=== PATIENT | male | born 1970 | race African-American/Black ===

== ENCOUNTER 2019-03-30 03:20 | Emergency (ER) | payer SELFPAY | END 2019-03-30 03:35 | LOC: ERS 03:20 | DX: F16.10 Hallucinogen abuse, uncomplicated (principal); F10.20 Alcohol dependence, uncomplicated; D64.9 Anemia, unspecified; F41.9 Anxiety disorder, unspecified; F31.9 Bipolar disorder, unspecified; F17.210 Nicotine dependence, cigarettes, uncomplicated | CPT/HCPCS: 99283 ==

== ENCOUNTER 2019-05-30 13:43 | Emergency (ER) | payer OTHER ==
[2019-05-30 14:34] LABS: #Lymphocytes 0.6 thou/uL (1.20-3.40); #Monocytes 0.7 thou/uL (0.11-0.59); #Neutrophils 6.3 thou/uL (1.40-6.50); %Basophils 0.2 % (0.0-1.0); %Eosinophils 0.4 % (0.0-10.0); %Lymphocytes 7.2 % (21.0-51.0); %Monocytes 9.4 % (0.0-10.0); %Neutrophils 82.8 % (42.0-75.0); Hemoglobin 13.4 g/dL (14.0-18.0); Mean Corpuscular HGB CONC 33.7 g/dL (32.0-36.0); Mean Corpuscular Hemoglobin 29.7 pg (27.0-31.0); Mean Corpuscular Volume 88.1 fL (78.0-98.0); Mean Platelet Volume 10.3 fL (7.4-10.4); Platelet Count 168 thou/uL (130-400); RBC Distribution Width 12.7 % (11.5-14.5); Red Blood Cell (RBC) Count 4.53 mill/uL (4.70-6.10); White Blood Cell (WBC) Count 7.7 thou/uL (4.8-10.8)
[2019-05-30 15:03] LABS: Acetaminophen Less than 6.0 mcg/mL (10.0-30.0); Alcohol Less than 10 mg/dL (Less than 10); Salicylate Less than 8.0 mg/dL (15.0-30.0)
[2019-05-30 15:11] LABS: Bilirubin Negative (Negative); Blood, Urine Negative (Negative); Clarity Clear (Clear); Glucose, Urine (Dipstick) Normal (Negative); Leukocyte Negative Leu/uL (Negative); Nitrite Negative (Negative); Protein, Urine (Dipstick) 20 mg/dL (Neg-Trace); Urobilinogen Normal mg/dL (Less than 2)
[2019-05-30 15:21] LABS: Amphetamine Not Detected (NotDetected); Barbiturates Screen Not Detected (NotDetected); Benzodiazepine Screen Not Detected (NotDetected); Cocaine Metabolite Screen Detected (NotDetected); Medtox Reader # READER 1; Methadone Not Detected (NotDetected); Methamphetamine Not Detected (NotDetected); Opiate Screen Not Detected (NotDetected); Phencyclidine (PCP) Detected (NotDetected); THC/Cannabinoid Screen Detected (NotDetected); Tricyclic Screen Not Detected (NotDetected)
[2019-05-30 15:22] LABS: Medtox Control Line Valid? VALID (VALID); Oxycodone Screen Not Detected (NotDetected)
== END 2019-05-30 15:00 | disposition left against medical advice (07) ==
LOC: ERS 13:43
DX: R41.82 Altered mental status, unspecified (principal); D64.9 Anemia, unspecified; F32.9 Major depressive disorder, single episode, unspecified; F41.9 Anxiety disorder, unspecified; F17.210 Nicotine dependence, cigarettes, uncomplicated
CPT/HCPCS: 36415; 80306; 80307; 81003; 82550; 85025; 99285

== ENCOUNTER 2019-11-08 22:33 | Inpatient (IN) | payer OTHER ==
[2019-11-08 22:52] LABS: #Lymphocytes 1.6 thou/uL (1.20-3.40); #Monocytes 0.6 thou/uL (0.11-0.59); #Neutrophils 8.2 thou/uL (1.40-6.50); %Basophils 0.3 % (0.0-1.0); %Eosinophils 0.5 % (0.0-10.0); %Lymphocytes 15.1 % (21.0-51.0); %Monocytes 5.7 % (0.0-10.0); %Neutrophils 78.4 % (42.0-75.0); Mean Corpuscular HGB CONC 32.8 g/dL (32.0-36.0); Mean Corpuscular Hemoglobin 30.2 pg (27.0-31.0); Mean Corpuscular Volume 92.3 fL (78.0-98.0); Mean Platelet Volume 10.3 fL (7.4-10.4); Platelet Count 288 thou/uL (130-400); White Blood Cell (WBC) Count 10.4 thou/uL (4.8-10.8)
[2019-11-08] MEDS ORDERED: Cefepime 2 GM VIAL ONE (22:56)
--- NOTE | 2019-11-08 23:08 | RAD ---
RADIOGRAPH CHEST 1 VIEW: DATE: 11/08/2019 HISTORY: 48-year-old male with tachycardia, hypotension, and hypothermia FINDINGS: The visualized lung cedeno are clear. The cardiomediastinal silhouette and hilar shadows are normal. The lateral costophrenic angles are sharp. The osseous structures appear normal. There is no pneumothorax. There is at least mild hyperinflation of lungs. IMPRESSION: No acute cardiac probably findings
[2019-11-08 23:14] LABS: Acetaminophen Less than 6.0 mcg/mL (10.0-30.0); Alcohol Less than 10 mg/dL (Less than 10); Salicylate Less than 8.0 mg/dL (15.0-30.0)
[2019-11-08] MEDS ORDERED: Vancomycin HCl 1.25 GM in Sodium Chloride 0.9% 250 ML 250 ML IVPB SCH (23:15)
[2019-11-08 23:28] LABS: ALT (SGPT) 15 U/L (8-55); AST (SGOT) 23 U/L (5-34); Albumin 5.6 g/dL (3.5-5.0); Alkaline Phosphatase 86 U/L (40-110); Anion Gap 35 mmol/L (10-20); BUN (Urea Nitrogen) 31 mg/dL (8.9-20.6); Bilirubin, Total 0.8 mg/dL (0.2-1.2); Calc. Creatinine Clearance 0 mL/min (70-130); Calcium 11.5 mg/dL (7.8-10.44); Carbon Dioxide 11 mmol/L (22-29); Chloride 94 mmol/L (98-107); Estimated GFR-MDRD 19; Glucose 162 mg/dL (70-105); Potassium 4.2 mmol/L (3.5-5.1); Protein, Total 10.6 g/dL (6.0-8.3); Sodium 136 mmol/L (136-145)
[2019-11-09 01:33] LABS: Actual Bicarbonate (HCO3a) 19.1 mEq/L (22-28); Analyzer IN Cardio ER; Base Excess (BEa) -5.9 mEq/L (-2.0 to +3.0); Calcium, Ionized (arterial) 1.14 mmol/L (1.12-1.30); Carboxyhemoglobin (COHb) 0.2 gm% (0.0-3.0); Hemoglobin (Hb) 13.3 g/dL (14.0-18.0); O2 Tension (PaO2), arterial 86.8 mmHg (80.0-100.0); Potassium - ABG Lab 4.87 mmol/L (3.70-5.30); pH, Arterial 7.34 (7.35-7.45)
[2019-11-09 01:35] LABS: Puncture Site RRA
[2019-11-09 01:44] LABS: Lactic Acid 1.4 mmol/L (0.5-2.2)
[2019-11-09 01:57] LABS: Bacteria/HPF 1+ HPF (None Seen); Bilirubin Negative (Negative); Blood, Urine 1+ (Negative); Clarity Turbid (Clear); Glucose, Urine (Dipstick) Normal (Negative); Ketone, Urine Negative (Negative); Leukocyte Negative Leu/uL (Negative); Nitrite Negative (Negative); Protein, Urine (Dipstick) 200 mg/dL (Neg-Trace); Specific Gravity, Urine 1.019 (1.002-1.036); Squamous Epithelial 0-3 HPF (0-3); Urobilinogen Normal mg/dL (Less than 2); pH, Urine 5.5 (5.0-9.0)
[2019-11-09] MEDS ORDERED: Acetaminophen 325 MG TAB PO PRN ×2 (02:43→03:52)
[2019-11-09] MEDS ORDERED: Ondansetron PF 4 MG/2 ML Vial IVP PRN ×2 (02:43→03:52)
[2019-11-09] MEDS ORDERED: Ondansetron ODT 4 MG TAB SL PRN (02:43)
[2019-11-09 02:55] VITALS: BMI 16.9
[2019-11-09] MEDS: Sodium Chloride 0.9% 1,000 ML IV SCH ×3 (03:01→21:52)
[2019-11-09] MEDS ORDERED: cloNIDine 0.1 MG TAB PO PRN (03:52)
[2019-11-09] MEDS ORDERED: Labetalol HCl 100 MG/20 ML VIAL SLOW IVP PRN (03:52)
[2019-11-09] MEDS ORDERED: Guaifenesin DM 100-10/5 ML UDCUP PO PRN (03:52)
[2019-11-09] MEDS ORDERED: Promethazine HCl 12.5 MG in Sodium Chloride 0.9% 50 ML IVPB PRN (03:52)
[2019-11-09] MEDS ORDERED: hydrALAZINE 20 MG/ML VIAL SLOW IVP PRN (03:52)
--- NOTE | 2019-11-09 03:59 | PDOC.HHP ---
Hospitalist HPI - History of Present Illness Syncope History of Present Illness: Patient is a 48 year old male with PMH anemia, depression, biopolar disorder, anxiety, substance abuse (PCP, marijuana) who presents after being found down in bathtub by family after unknown amount of time. He is poor historian, but feels like he remembers laying down in tub. EMs called and patient was found to be hypotensive, tachycardic and hypothermic, with temp 94F and SBP in 80s, sugar 109. He was responsive and AOx4 on scene despite vital sign abnormalities. In ambulance given IVF and warming blankets. He recently tested negative for covid. He is not aware of any medical history, used to see a PCP in town but does not remember name. He denies chest pain, shortness of breath, palpitations. He reports feeling sick/ill last few days. He is unsure if he has ever had any cardiac testing. In ED, labs significant for lactic acid of 11.4 which rapidly improved to 1.4 after 2 hours of care. CO2 is 11, abg w/ metabolic acidosis. Cr 4.03. TnI normal, TSH high. Ua suggestive of UTI. CXR without acute findings. Patient to be admitted for further workup and care. Hospitalist ROS - Review of Systems Constitutional: reports: other (syncope). denies: fever, chills, sweats, weakness, malaise Eyes: denies: pain, vision change, conjunctivae inflammation, eyelid inflammation, redness, other ENT: denies: ear pain, ear discharge, nose pain, nose discharge, nose congestion , mouth pain, mouth swelling, throat pain, throat swelling, other Respiratory: denies: cough, dry, shortness of breath, hemoptysis, SOB with excertion, pleuritic pain, sputum, wheezing, other Cardiovascular: denies: chest pain, palpitations, orthopnea, paroxysmal noc. dyspnea, edema, light headedness, other Gastrointestinal: denies: nausea, vomiting, abdominal pain, diarrhea, constipation, melena, hematochezia, other Genitourinary: denies: dysuria, frequency, incontinence, hematuria, retention, other Musculoskeletal: denies: neck pain, shoulder pain, arm pain, back pain, hand pain, leg pain, foot pain, other Skin: denies: rash, lesions, sri, bruising, other Neurological: denies: weakness, numbness, incoordination, change in speech, confusion, seizures, other All other systems reviewed; all pertinent +/- noted in HPI/Subj - Medication Medications: Active Medications Generic Name Dose Route Start Last Admin Trade Name Joshuaq PRN Reason Stop Dose Admin Sodium Chloride 1,000 mls @ 110 mls/hr 11/09/19 02:43 11/09/19 03:01 Normal Saline 0.9% IV 11/09/19 13:25 1,000 mls .[id number] KADE Administration UNK DEPRESSION MED gabapentin CAPSULE : Strength - 100 mg : ORAL Patient Dose: 1 tab(s) Oral 3 times a day. Hospitalist History - Past Medical History Other Medical History: anemia, depression, biopolar disorder, anxiety, substance abuse (PCP, marijuana ) - Past Surgical History Past Surgical History: reports: no pertinent history - Family History Family History: reports: no pertinent history - Social History Smoking Status: Current every day smoker Alcohol: reports: Occassional Drugs: reports: marijuana, Other (pcp) - Exam General Appearance: NAD, awake alert Eye: PERRL, anicteric sclera ENT: normocephalic atraumatic, no oropharyngeal lesions, moist mucosa Neck: supple, symmetric, no JVD, no thyromegaly, no lymphadenopathy, no carotid bruit Heart: RRR, no murmur, no gallops, no rubs, normal peripheral pulses Respiratory: CTAB, no wheezes, no rales, no ronchi, normal chest expansion, no tachypnea, normal percussion Gastrointestinal: soft, non-tender, non-distended, normal bowel sounds, no palpable masses, no hepatomegaly, no splenomegaly, no bruit Extremities: no cyanosis, no clubbing, no edema Skin: normal turgor, no lesions, no rashes Neurological: cranial nerve grossly intact, normal sensation to touch, no weakness, no focal deficits, no new deficit Musculoskeletal: normal tone, normal strength, no muscle wasting Psychiatric: normal affect, normal behavior, A&O x 3 Hospitalist Results - Labs Result Diagrams: 11/08/19 22:40 11/08/19 22:40 Lab results: WBC 10.4 thou/uL (4.8-10.8) 11/08/19 22:40 Hgb 16.0 g/dL (14.0-18.0) 11/08/19 22:40 Hct 48.9 % (42.0-52.0) 11/08/19 22:40 MCV 92.3 fL (78.0-98.0) 11/08/19 22:40 Plt Count 288 thou/uL (130-400) 11/08/19 22:40 Neutrophils % 78.4 % (42.0-75.0) H 11/08/19 22:40 ABG pH 7.34 (7.35-7.45) L 11/09/19 01:25 ABG pCO2 36.0 mmHg (35.0-45.0) 11/09/19 01:25 ABG pO2 86.8 mmHg (80.0-100.0) 11/09/19 01:25 Sodium 136 mmol/L (136-145) 11/08/19 22:40 Potassium 4.2 mmol/L (3.5-5.1) 11/08/19 22:40 Chloride 94 mmol/L (98-107) L 11/08/19 22:40 Carbon Dioxide 11 mmol/L (22-29) L 11/08/19 22:40 BUN 31 mg/dL (8.9-20.6) H 11/08/19 22:40 Creatinine 4.03 mg/dL (0.7-1.3) H 11/08/19 22:40 Glucose 162 mg/dL (70-105) H 11/08/19 22:40 Lactic Acid 1.4 mmol/L (0.5-2.2) 11/09/19 01:22 Calcium 11.5 mg/dL (7.8-10.44) H 11/08/19 22:40 Total Bilirubin 0.8 mg/dL (0.2-1.2) 11/08/19 22:40 AST 23 U/L (5-34) 11/08/19 22:40 ALT 15 U/L (8-55) 11/08/19 22:40 Alkaline Phosphatase 86 U/L (40-110) 11/08/19 22:40 Creatine Kinase 147 U/L (30-200) 11/08/19 22:40 Troponin I 0.026 ng/mL (< 0.028) 11/08/19 22:40 B-Natriuretic Peptide 23.7 pg/mL (0-100) 11/08/19 22:40 Serum Total Protein 10.6 g/dL (6.0-8.3) H 11/08/19 22:40 Albumin 5.6 g/dL (3.5-5.0) H 11/08/19 22:40 Lipase 23 U/L (8-78) 11/08/19 22:40 Urine Ketones Negative mg/dL (Negative) 11/09/19 01:40 Urine Blood 1+ (Negative) A 11/09/19 01:40 Urine Nitrite Negative (Negative) 11/09/19 01:40 Ur Leukocyte Esterase Negative Kit/uL (Negative) 11/09/19 01:40 Urine RBC 4-6 HPF (0-3) A 11/09/19 01:40 Urine WBC 11-20 HPF (0-3) A 11/09/19 01:40 Ur Squamous Epith Cells 0-3 HPF (0-3) 11/09/19 01:40 Urine Bacteria 1+ HPF (None Seen) A 11/09/19 01:40 Additional comment: VITAL SIGNS Fri Nov 09, 2019 01:45 CHIQUI Royal Deborah BP: 98/61 MAP: 73 Pulse: 100 Resp: 13 (Non-Labored) Pain: 8 O2 sat: 98 on (Room Air) Time: 11/09/2019 01:45. labs, imaging reports, ekg, ed notes reviewed - EKG Interpretation EKG: sinus tachycardia 117 BPM, significant artifact limiting interpretation, QTc 527 , no apparant ST elevations but eval limited Hospitalist H&P A/P - Plan Plan: Patient is a 48 year old male with PMH anemia, depression, biopolar disorder, anxiety, substance abuse (PCP, marijuana) who presents after being found down in bathtub by family after unknown amount of time. # syncope # UTI # severe sepsis secondary to UTI Patient found in bathtub hypotensive, tachycardic and hypothermic, in ED lactic acid 11.4 -> 1.4, CO2 11, abg w/ metabolic acidosis. Cr 4.03. TnI normal, TSH high. Ua suggestive of UTI. CXR without acute findings. Patient to be admitted for further workup and care. - admit to IMCU - ceftriaxone, follow cultures - echocardiogram ordered - consult pulmonary - UDS # acute renal failure # metabolic acidosis - suspect mixed cause due to lactic acid and renal failure - trend BMP, recheck now that patient has been warmed - bicarbona drip - I/Os # prolonged QT - mag sulfate now - artifact limits EKG read, repeat after giving magnesium # abnormal TSH - free T4 ordered DVT/GI ppx full code
[2019-11-09] MEDS ORDERED: Sodium Chloride 0.9% 1,000 ML IV SCH (04:00)
[2019-11-09] MEDS ORDERED: Electrolyte Replacement Protoc 1 EACH EACH FS SCH (04:00)
[2019-11-09] MEDS ORDERED: Sodium Bicarbonate 150 MEQ in Dextrose 5% in Water 1,000 ML IV SCH (04:15)
[2019-11-09 04:35] LABS: INR-International Normal Ratio 1.1; Prothrombin Time 14.1 sec (12.0-14.7)
[2019-11-09] MEDS: cefTRIAXone\\ROCEPHIN 1 GM in Sodium Chloride 0.9% 100 ML IVPB SCH (04:45)
[2019-11-09 05:13] LABS: Thyroid Stimulating Hormone 1.373 uIU/mL (0.35-4.94)
[2019-11-09 05:30] LABS: Amphetamine Not Detected (NotDetected); Barbiturates Screen Not Detected (NotDetected); Benzodiazepine Screen Not Detected (NotDetected); Cocaine Metabolite Screen Detected (NotDetected); Medtox Control Line Valid? VALID (VALID); Medtox Reader # READER 1; Methadone Not Detected (NotDetected); Methamphetamine Not Detected (NotDetected); Opiate Screen Not Detected (NotDetected); Oxycodone Screen Not Detected (NotDetected); Phencyclidine (PCP) Not Detected (NotDetected); THC/Cannabinoid Screen Detected (NotDetected); Tricyclic Screen Not Detected (NotDetected)
[2019-11-09] MEDS ORDERED: Magnesium Sulfate 2 GM in Sodium Chloride 0.9% 100 ML IVPB SCH (05:30)
[2019-11-09 05:33] LABS: #Lymphocytes 0.7 thou/uL (1.20-3.40); #Monocytes 1.1 thou/uL (0.11-0.59); #Neutrophils 11.7 thou/uL (1.40-6.50); %Eosinophils 0.1 % (0.0-10.0); %Lymphocytes 5.4 % (21.0-51.0); %Monocytes 8.2 % (0.0-10.0); %Neutrophils 86.3 % (42.0-75.0); Hemoglobin 12.3 g/dL (14.0-18.0); Mean Corpuscular HGB CONC 33.8 g/dL (32.0-36.0); Mean Corpuscular Hemoglobin 30.2 pg (27.0-31.0); Mean Corpuscular Volume 89.4 fL (78.0-98.0); Mean Platelet Volume 9.7 fL (7.4-10.4); Platelet Count 190 thou/uL (130-400); RBC Distribution Width 11.7 % (11.5-14.5); Red Blood Cell (RBC) Count 4.08 mill/uL (4.70-6.10); White Blood Cell (WBC) Count 13.5 thou/uL (4.8-10.8)
[2019-11-09 05:42] LABS: Chloride 103 mmol/L (98-107); Potassium 4.8 mmol/L (3.5-5.1); Sodium 136 mmol/L (136-145)
[2019-11-09 05:43] LABS: Glucose 117 mg/dL (70-105)
[2019-11-09 05:44] LABS: Anion Gap 18 mmol/L (10-20); Carbon Dioxide 20 mmol/L (22-29)
[2019-11-09] MEDS ORDERED: Magnesium 2 GM/50 ML 2 GM in Premix Bag 1 BAG IVPB SCH (05:45)
[2019-11-09 05:46] LABS: Calc. Creatinine Clearance 22 mL/min (70-130); Estimated GFR-MDRD 22; Phosphorus 3.7 mg/dL (2.3-4.7)
[2019-11-09 05:47] LABS: BUN (Urea Nitrogen) 37 mg/dL (8.9-20.6)
[2019-11-09 05:48] LABS: Calcium 8.5 mg/dL (7.8-10.44); Magnesium 1.8 mg/dL (1.6-2.6)
[2019-11-09 07:13] LABS: Free T4 (Free Thyroxine) 1.2 ng/dL (0.70-1.48)
--- NOTE | 2019-11-09 09:27 | ULT ---
ULTRASOUND RETROPERITONEUM COMPLETE: (RENAL) DATE: 11/09/2019 HISTORY: 48-year-old male with acute kidney injury FINDINGS: Heterogeneously diffusely mildly increased parenchymal echogenicity of bilateral kidneys consistent w ith medical renal disease. No hydronephrosis. Right kidney: 9.5 x 4 x 5.5 cm. Left kidney: 9 x 5.5 x 5.5 cm. Urinary bladder volume 125 mL at time of scan. Heterogeneous material of intermediate to low echogenicity apparently within the lumen of the bladder extensively: Artifact versus sludge versus blood clots. IMPRESSION: 1) no hydronephrosis. 2) evidence for medical renal disease. 3) abnormal appearance of urinary bladder. Consider cystoscopy or CT.
[2019-11-09] MEDS: Famotidine 20 MG TAB PO SCH ×2 (09:46→20:38)
[2019-11-09] MEDS: Heparin 5,000 UNITS/ML VIAL SC SCH ×3 (09:46→20:38)
[2019-11-09] MEDS ORDERED: Cefepime 2 GM in Sodium Chloride 0.9% 100 ML IVPB SCH (11:00)
[2019-11-09] MEDS ORDERED: Vancomycin HCl 1.25 GM in Sodium Chloride 0.9% 250 ML 250 ML IVPB SCH (12:00)
[2019-11-09 12:45] LABS: SARS-CoV-2 MS2 Positive; SARS-CoV-2 N Gene Negative; SARS-CoV-2 S Gene Negative; SARS-CoV-2 by NAA Not Detected (NotDetected); SARS-CoV-2 orf1ab Negative
--- NOTE | 2019-11-09 18:25 | CON ---
DATE OF CONSULTATION: 11/09/2019 REASON FOR CONSULTATION: Sepsis. HISTORY OF PRESENT ILLNESS: The patient is a 48-year-old male, who presented to the ER yesterday with severe weakness and had been found down at his home in the bathtub. On initial presentation, he was hypothermic with hypotension. The foot became better fairly quickly after fluid administration. He was also initially lactic acidotic, but improved again after fluid administration. He is awake and alert at this time and has no active complaints. PAST MEDICAL HISTORY: Anemia, depression, bipolar disorder, anxiety, drug abuse , marijuana, cocaine. PAST SURGICAL HISTORY: None. FAMILY MEDICAL HISTORY: None. SOCIAL HISTORY: Smokes every day. He uses illicit drugs. Does not consume alcohol. MEDICATIONS: Prior to admission, not known at this time. REVIEW OF SYSTEMS: He says he has chronic pain. He does not know what he takes for that other than Neurontin. REVIEW OF SYSTEMS: Remainder review of systems are negative. ALLERGIES: NONE. PHYSICAL EXAMINATION: VITAL SIGNS: Temperature 99.7, pulse 83, blood pressure 103/66, and O2 saturation 100%. GENERAL: He is awake, alert, and in no acute distress. He is a thin person, 6 feet and 3 inches, weight 135 pounds. HEENT: Unremarkable. NECK: No adenopathy or JVD. LUNGS: Clear. CARDIAC: S1 and S2. Regular without murmur. ABDOMEN: Soft and nontender. EXTREMITIES: No clubbing, cyanosis, or edema. LABORATORY DATA: White blood cell count 13.5, hematocrit 36.5, and platelet count 191. PH of 7.34, pCO2 of 36, and pO2 of 86. Sodium 136, potassium 4.8, chloride 103, CO2 of 20, BUN 37, creatinine 3.5, and glucose 117. CPK was not elevated. Troponin 0.17. Cortisol 19.4. TSH 1.37. Urinalysis showed some white blood cells. Drug screen positive for cocaine and cannabinoids. COVID-19 test was negative. Chest x-ray showed no acute findings. Renal ultrasound showed some low echogenicity within the lumen of the bladder extensively, which was felt to be artifact versus sludge versus clots. ASSESSMENT: 1. Lactic acidosis due to either hypovolemia or sepsis. 2. Question bladder lesion. 3. Oral drug abuse. PLAN: The patient is currently receiving IV fluids to help correct his metabolic acidosis. He is receiving empiric antibiotics. I have nothing to add to the current care and we will follow along with you until he leaves [facility]. Job ID: [id number]
[2019-11-09] MEDS ORDERED: Enoxaparin Sodium 30 MG/0.3 ML SYRINGE SC SCH (21:00)
[2019-11-10 03:38] LABS: #Eosinphils 0.2 thou/uL (0.0-0.7); #Lymphocytes 1.2 thou/uL (1.20-3.40); #Monocytes 0.5 thou/uL (0.11-0.59); #Neutrophils 2.6 thou/uL (1.40-6.50); %Basophils 0.3 % (0.0-1.0); %Eosinophils 4.7 % (0.0-10.0); %Lymphocytes 26.2 % (21.0-51.0); %Monocytes 11.8 % (0.0-10.0); Hemoglobin 10.7 g/dL (14.0-18.0); Mean Corpuscular Hemoglobin 30.5 pg (27.0-31.0); Mean Corpuscular Volume 89.7 fL (78.0-98.0); Mean Platelet Volume 9.8 fL (7.4-10.4); Platelet Count 140 thou/uL (130-400); RBC Distribution Width 11.6 % (11.5-14.5); Red Blood Cell (RBC) Count 3.49 mill/uL (4.70-6.10); White Blood Cell (WBC) Count 4.6 thou/uL (4.8-10.8)
[2019-11-10 04:26] LABS: Anion Gap 11 mmol/L (10-20); BUN (Urea Nitrogen) 36 mg/dL (8.9-20.6); Calc. Creatinine Clearance 48 mL/min (70-130); Calcium 8.7 mg/dL (7.8-10.44); Carbon Dioxide 28 mmol/L (22-29); Chloride 102 mmol/L (98-107); Estimated GFR-MDRD 55; Glucose 91 mg/dL (70-105); Magnesium 2.4 mg/dL (1.6-2.6); Potassium 4.1 mmol/L (3.5-5.1); Sodium 137 mmol/L (136-145)
[2019-11-10] MEDS: cefTRIAXone\\ROCEPHIN 1 GM in Sodium Chloride 0.9% 100 ML IVPB SCH (05:01)
[2019-11-10] MEDS: Famotidine 20 MG TAB PO SCH ×2 (08:33→20:59)
[2019-11-10] MEDS: Heparin 5,000 UNITS/ML VIAL SC SCH ×3 (08:33→20:54)
[2019-11-10] MEDS: Sodium Chloride 0.9% 1,000 ML IV SCH (08:34)
--- NOTE | 2019-11-10 11:45 | PRG ---
DATE OF SERVICE: 11/10/2019 SUBJECTIVE: He looks comfortable and is in no distress. He had no complaints. OBJECTIVE: VITAL SIGNS: Temperature 98.7, pulse 56, blood pressure 94/56, O2 saturation 100%. HEENT: Unremarkable. NECK: No JVD. LUNGS: Clear. CARDIAC: S1 and S2. Regular. ABDOMEN: Soft. EXTREMITIES: No edema. LABORATORY DATA: White blood cell count 4.6, hematocrit 31, and platelet count 140. Sodium 137, potassium 4.1, BUN 36, creatinine 1.6, glucose 91. Cultures show no growth to date. An echocardiogram demonstrated normal systolic function with no evidence of vegetations. ASSESSMENT: 1. Lactic acidosis, probably secondary to hypovolemia. 2. Questionable bladder lesion. 3. Drug abuse. PLAN: No overt pulmonary critical care concerns. I think the patient could be safely transferred to the medical floor. He has improved dramatically with volume resuscitation. I will sign off. Please recall if further assistance needed. Job ID: [id number]
[2019-11-10 12:36] LABS: CKMB 3.3 ng/mL (0-6.6)
[2019-11-10] MEDS ORDERED: Gabapentin 100 MG CAP PO PRN (19:08)
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
[2019-11-10] MEDS: Cefdinir 300 MG CAP PO SCH (20:59)
[2019-11-11] MEDS: Sodium Chloride 0.9% 1,000 ML IV SCH ×2 (00:14→08:08)
[2019-11-11 00:44] LABS: HIV (1/2) Antibody/Antigen Non-Reactive (NonReactive); HIV 1/2 INDEX 0.11 S/CO (<1.00)
[2019-11-11 07:07] VITALS: BP 114/76; TEMP 97.5
[2019-11-11 08:00] LABS: Iron 98 ug/dL (65-175); Iron Binding Capacity, Total 254 mcg/dL (261-462)
[2019-11-11] MEDS: Famotidine 20 MG TAB PO SCH ×2 (08:08→19:48)
[2019-11-11] MEDS: Cefdinir 300 MG CAP PO SCH ×2 (08:08→19:48)
[2019-11-11] MEDS: Heparin 5,000 UNITS/ML VIAL SC SCH ×3 (08:09→19:44)
[2019-11-11 08:24] LABS: Ferritin 99.48 ng/mL (22-322); Thyroid Stimulating Hormone 3.5576 uIU/mL (0.35-4.94)
[2019-11-11 10:37] LABS: Hemoglobin 10.2 g/dL (14.0-18.0); Mean Corpuscular HGB CONC 33.5 g/dL (32.0-36.0); Mean Corpuscular Hemoglobin 30.4 pg (27.0-31.0); Mean Corpuscular Volume 90.7 fL (78.0-98.0); Mean Platelet Volume 10.5 fL (7.4-10.4); Platelet Count 138 thou/uL (130-400); RBC Distribution Width 11.6 % (11.5-14.5); Red Blood Cell (RBC) Count 3.35 mill/uL (4.70-6.10); White Blood Cell (WBC) Count 3.7 thou/uL (4.8-10.8)
[2019-11-11 10:55] LABS: Anion Gap 14 mmol/L (10-20); BUN (Urea Nitrogen) 21 mg/dL (8.9-20.6); Calc. Creatinine Clearance 78 mL/min (70-130); Calcium 8.7 mg/dL (7.8-10.44); Carbon Dioxide 24 mmol/L (22-29); Chloride 107 mmol/L (98-107); Estimated GFR-MDRD Greater than 90; Glucose 96 mg/dL (70-105); Potassium 4.4 mmol/L (3.5-5.1); Sodium 141 mmol/L (136-145)
[2019-11-11] MEDS ORDERED: Gabapentin 100 MG CAP PO SCH ×2 (14:30→21:00)
--- NOTE | 2019-11-11 16:06 | EKG ---
Test Reason : Blood Pressure : / mmHG Vent. Rate : 082 BPM Atrial Rate : 082 BPM P-R Int : 138 ms QRS Dur : 080 ms QT Int : 384 ms P-R-T Axes : 075 080 077 degrees QTc Int : 448 ms Normal sinus rhythm Right atrial enlargement Borderline ECG When compared with ECG of 08-NOV-2019 22:41, (Unconfirmed) Premature atrial complexes are no longer Present ST no longer depressed in Inferior leads T wave inversion no longer evident in Inferior leads Nonspecific T wave abnormality no longer evident in Lateral leads Confirmed by Hieu BOYER ([id number]) on 11/11/2019 4:05:33 PM Referred By: DIGNA Confirmed By:Hieu BOYER
--- NOTE | 2019-11-11 16:28 | PDOC.HOSPP ---
- Subjective Encounter Date: 11/11/19 Encounter Time: 10:00 Subjective: THe patient is doing well. He has only mild cramps in his legs, gabapentin dose increased today Patient is getting EEG this am. MRI unable to be done this afternoon - Objective Vital Signs & Weight: Vital Signs (12 hours) Temp Pulse Resp BP Pulse Ox 11/11/19 07:33 99 11/11/19 07:03 97.5 F L 73 17 114/76 99 Weight Admit Weight 135 lb 7 oz Weight 135 lb 7 oz Most Recent Monitor Data Heart Rate from ECG 58 NIBP 97/63 NIBP BP-Mean 74 Respiration from ECG 7 SpO2 100 I&O: 11/10/19 11/11/19 11/12/19 06:59 06:59 06:59 Intake Total 2872 622 Output Total 2100 200 1400 Balance 772 422 -1400 Result Diagrams: 11/11/19 10:13 11/11/19 10:13 Hospitalist ROS - Medication Medications: Active Medications Generic Name Dose Route Start Last Admin Trade Name Joshuaq PRN Reason Stop Dose Admin Cefdinir 300 mg 11/10/19 21:00 11/11/19 08:08 Omnicef PO 300 mg BID KADE Administration Famotidine 20 mg 11/09/19 09:00 11/11/19 08:08 Pepcid PO 20 mg BID KADE Administration Gabapentin 200 mg 11/11/19 14:30 11/11/19 15:19 Neurontin PO 11/11/19 16:30 200 mg NOW KADE Administration Heparin Sodium (Porcine) 5,000 units 11/09/19 09:00 11/11/19 15:20 Heparin SC 5,000 units TID KADE Administration Sodium Chloride 1,000 mls @ 75 mls/hr 11/09/19 21:45 11/11/19 08:08 Normal Saline 0.9% IV 1,000 mls .[id number] KADE Administration - Exam General Appearance: NAD, awake alert Eye: PERRL, anicteric sclera ENT: normocephalic atraumatic, no oropharyngeal lesions Neck: no JVD Heart: RRR, no murmur, no gallops, no rubs Respiratory: CTAB, no wheezes, no rales, no ronchi Gastrointestinal: soft, non-tender, non-distended, normal bowel sounds Extremities: no cyanosis, no clubbing, no edema Skin: normal turgor, no lesions, no rashes Neurological: cranial nerve grossly intact, normal sensation to touch, no focal deficits, no new deficit Hosp A/P - Plan This is 48 year old male who presented with syncopal episode after being found down in the bathtub #Syncope - likely from severe dehydration - ECHO was normal - EEG was negative for seizure. He does have history of seizures and is on gabapentin - will checK CT scan of head given fall. Neurology was consulted, MRI brain has been ordered #Sepsis from UTI #Lactic acidosis - possibly sepsis vs dehydration - resolved. Blood and urine culture normal , however UA was very turbid. Will switch from IV ceftriaxone to oral cefdinir #LE - resolved, REnal US showed medical renal disease Leg cramps - gabapentin increased to 200 mg bid #Leukopenia #Severe malnutrition - patient's BMI noted to be 16.9. WBC still downtrending - HIV test negative Anemia - Hb 10,ferritin normal - B12/folate/TSH normal Dispo: possible d/c tomorrow pending MRI brain
--- NOTE | 2019-11-11 18:14 | CT ---
CT HEAD WITHOUT CONTRAST: Indications: Fall with injury, syncope. FINDINGS: Ventricles have normal size and position. No evidence of intracranial hemorrhage or mass. No evidence of infarct. Paranasal sinuses are clear. IMPRESSION: No acute findings. POS: AGW
--- NOTE | 2019-11-12 08:21 | EEG ---
DATE OF SERVICE: 11/11/2019 ATTENDING PHYSICIAN: Daphnie Schuler MD. This EEG was performed using 24-channel Screen [employer] video digital EEG machine with 24-disk electrodes. This was an extended 2 hours 6 minutes of inpatient video EEG recording. Digital analysis of the EEG was done for spike and seizure detection, which revealed no abnormalities. BACKGROUND: The posterior background rhythm is 8.5 Hz. The background rhythm attenuates with eye opening and enhances with eye closure. HYPERVENTILATION: Not performed. PHOTIC STIMULATION: Bioccipital symmetric driving responses observed. SLEEP: Drowsiness is observed. EEG DIAGNOSIS: Normal awake and drowsy EEG. Job ID: [id number]
--- NOTE | 2019-11-12 19:13 | DIS ---
DATE OF ADMISSION: 11/09/2019 DATE OF DISCHARGE: 11/11/2019 DISCHARGE DIAGNOSES: 1. Syncope likely secondary to severe dehydration and possible urinary tract infection. 2. Severe sepsis secondary to urinary tract infection. 3. Acute renal failure. 4. History of seizures. 5. Leg cramps. BRIEF HISTORY OF PRESENT ILLNESS: This is a 48-year-old male with a past medical history of depression, anxiety, substance abuse, who presented to the emergency room after he was found in the bathtub by his friend. The patient stated he had a poor appetite due to cramps in his legs. He went to soak his legs in the bathtub. Shortly after, he felt dizzy and lightheaded and passed out. When he came to the emergency room, he was hypotensive, tachycardic, hypothermic with a temperature of 94, and his blood pressure was in the 80s. He was given IV fluids and warming blankets and brought to the ER for further evaluation. His labs were significant for lactic acid of 11.4, his UA showed turbid urine. U-Tox was positive for cocaine and marijuana. COVID PCR was negative. Chest x-ray was normal. The patient was admitted to the hospital for further workup and started on a broad-spectrum antibiotics. HOSPITAL COURSE: 1. Severe sepsis secondary to UTI. 2. Lactic acidosis secondary to severe dehydration: The patient was hydrated with IV fluids. He was started on IV ceftriaxone empirically. Blood cultures and urine cultures were negative; however, urine culture was done after the patient received antibiotics. His lactic acid normalized and his white blood cell count actually went down to 3.7 at the time of discharge. I resumed cefdinir on discharge for seven days given that his UA seemed consistent with UTI even though cultures were negative. 3. Syncope/History of seizures: Echocardiogram was normal. EEG to rule out seizures was normal. CT head was normal. MRI of the brain was unable to be done. Neurology recommended that the patient can get an outpatient MRI of the brain. He was started on gabapentin for history of his leg cramps and this can also be used to treat the seizures as well. Per neurology, they recommended gabapentin 200 mg twice daily. He should consider following up with a neurologist in a month. 4.Cocaine intoxication/marijuana intoxication: The patient was advised to stop smoking cocaine and consider stopping marijuana since it causes cyclic vomiting syndrome. 5. Acute renal failure: The patient presented with a creatinine of 4.03, which improved to 0.99 at the time of discharge. Renal ultrasound showed evidence of medical renal disease. It did show abnormal appearance of the bladder with possible clots and to consider a cystoscopy or CT abdomen. 6. Severe malnutrition/leukopenia: The patient's white count was downtrending. This may be secondary to antibiotics. His BMI is 16.9. HIV testing was negative. 7. Anemia: The patient has hemoglobin of 10. Ferritin, B12, folate, and TSH were normal. Consider further outpatient workup. DISCHARGE PHYSICAL EXAMINATION: VITAL SIGNS: Temperature 97.5, heart rate 73, respiratory rate 17, O2 saturation 99% on room air, and blood pressure 114/76. GENERAL: The patient is alert, awake, and oriented x3. CVS: Regular rate and rhythm with no murmurs, rubs, or gallops. LUNGS: Clear to auscultation bilaterally. ABDOMEN: Positive bowel sounds, soft, nontender, nondistended. NEUROLOGIC: The patient has 5/5 strength in his upper and lower extremities. EXTREMITIES: No edema. The patient does appear malnourished. PERTINENT LABORATORY DATA: CBC 11/10: White count 3.7, hemoglobin 10.2, hematocrit 30.4, platelet count 138. BMP 11/10: Normal with a creatinine of 0.99. Iron panel: Iron 98, TIBC 254, iron sat 39, ferritin 99. LFTs 11/07: Normal. Troponin I: 0.026, 0.170, 0.031. TSH: 6.5. Free T4: 1.2. Cortisol: 19.4. UA 11/08: Shows turbid urine, 200 protein, 1+ blood, 11-20 white blood cells. U-Tox 11/08: Shows positive cocaine, positive cannabinoid. COVID PCR 11/08: Negative. HIV 11/09: Negative. Blood cultures 11/07: Negative. Urine culture 11/08: Negative. IMAGING: Chest x-ray 11/07: Shows no acute findings. Renal ultrasound on 11/08: No hydronephrosis. Evidence for medical renal disease. Abnormal appearance of urinary bladder. Consider cystoscopy or CT. No hydronephrosis. CT brain 11/10: Pending. Echo 11/08: EF 60% to 65%. Essentially unremarkable. DISCHARGE CONDITION: Stable. ACTIVITY: As tolerated. DIET: Heart healthy diet. DISCHARGE MEDICATIONS: 1. Gabapentin 200 mg p.o. b.i.d. 2. Cefdinir 300 mg p.o. b.i.d. DISCHARGE INSTRUCTIONS: The patient should follow up with his PCP in a week. He should get an MRI of his brain as an outpatient to evaluate for seizures. He should get a repeat CBC in a week because his white blood cell count was low. HIV test was negative. He was advised to stop smoking cocaine and marijuana. Consider repeat renal ultrasound or CT scan of the abdomen as an outpatient for abnormal appearance of the bladder, however, this is likely secondary to UTI. Job ID: [id number] [id number]
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
== END 2019-11-11 20:30 | disposition home or self-care (01) | DRG 871 ==
LOC: ERS 22:33 → IMCU/EMU 11-09 01:43 → T4-A 11-10 14:47
PROVIDERS: ADMIT Internal Medicine; ATTEND Internal Medicine
DX: A41.9 Sepsis, unspecified organism (principal); E43 Unspecified severe protein-calorie malnutrition; E87.2 Acidosis; N17.9 Acute kidney failure, unspecified; Z68.1 Body mass index [BMI] 19.9 or less, adult; N39.0 Urinary tract infection, site not specified; Z20.828 Contact with and (suspected) exposure to other viral communicable diseases; R65.20 Severe sepsis without septic shock; E86.0 Dehydration; G40.909 Epilepsy, unspecified, not intractable, without status epilepticus; F41.9 Anxiety disorder, unspecified; G47.62 Sleep related leg cramps; F14.129 Cocaine abuse with intoxication, unspecified; F12.129 Cannabis abuse with intoxication, unspecified; D64.9 Anemia, unspecified; I45.81 Long QT syndrome; D72.819 Decreased white blood cell count, unspecified; F31.9 Bipolar disorder, unspecified; Z79.899 Other long term (current) drug therapy
CPT/HCPCS: 36415; 36416; 51701; 70450; 71045; 76770; 80048; 80053; 80306; 80307; 81003; 81015; 82533; 82550; 82553; 82607; 82728; 82746; 82805; 83540; 83550; 83605; 83690; 83735; 83880; 84100; 84439; 84443; 84484; 85025; 85027; 85610; 87040; 87086; 87389; 87635; 93005; 93010; 93306; 95712; 95816; 95819; 95957; 96361; 96365; 96367; J0692; J0696; J1644; J3370; J3475; J3490; J7050; J7070; U0003

== ENCOUNTER 2021-02-22 07:52 | Emergency (ER) | payer OTHER ==
[2021-02-22] MEDS ORDERED: Boostrix 0.5 ML (Tdap) VIAL ONE (08:56)
== END 2021-02-22 11:57 | disposition home or self-care (01) ==
LOC: ERS 07:52
DX: S61.219A Laceration without foreign body of unspecified finger without damage to nail, initial encounter (principal); F17.210 Nicotine dependence, cigarettes, uncomplicated; Z79.899 Other long term (current) drug therapy
CPT/HCPCS: 90471; 90715

== ENCOUNTER 2021-07-17 10:41 | Emergency (ER) | payer OTHER ==
[2021-07-17 10:51] LABS: #Eosinphils 0.4 thou/uL (0.0-0.7); #Lymphocytes 1.5 thou/uL (1.20-3.40); #Monocytes 0.4 thou/uL (0.11-0.59); #Neutrophils 1.3 thou/uL (1.40-6.50); %Basophils 1.2 % (0.0-1.0); %Eosinophils 11.6 % (0.0-10.0); %Lymphocytes 40.7 % (21.0-51.0); %Monocytes 11.4 % (0.0-10.0); %Neutrophils 35.2 % (42.0-75.0); Hemoglobin 12.5 g/dL (14.0-18.0); Mean Corpuscular Hemoglobin 28.5 pg (27.0-31.0); Mean Corpuscular Volume 89.3 fL (78.0-98.0); Mean Platelet Volume 10.9 fL (7.4-10.4); Platelet Count 155 thou/uL (130-400); RBC Distribution Width 12.1 % (11.5-14.5); Red Blood Cell (RBC) Count 4.37 mill/uL (4.70-6.10); White Blood Cell (WBC) Count 3.7 thou/uL (4.8-10.8)
[2021-07-17 11:06] LABS: ALT (SGPT) 10 U/L (8-55); AST (SGOT) 15 U/L (5-34); Albumin 3.9 g/dL (3.5-5.0); Alkaline Phosphatase 67 U/L (40-110); Anion Gap 10 mmol/L (10-20); BUN (Urea Nitrogen) 18 mg/dL (8.4-25.7); Bilirubin, Total 0.6 mg/dL (0.2-1.2); Calc. Creatinine Clearance 0 mL/min (70-130); Calcium 9.2 mg/dL (7.8-10.44); Carbon Dioxide 23 mmol/L (22-29); Chloride 111 mmol/L (98-107); Globulin 3.5 g/dL (2.4-3.5); Glucose 96 mg/dL (70-105); PTT 28.4 sec (22.9-36.1); Potassium 4.2 mmol/L (3.5-5.1); Protein, Total 7.4 g/dL (6.0-8.3); Prothrombin Time 13.3 sec (12.0-14.7); Sodium 140 mmol/L (136-145)
== END 2021-07-17 13:15 | disposition home or self-care (01) ==
LOC: ERS 10:41
DX: S11.93XA Puncture wound without foreign body of unspecified part of neck, initial encounter (principal); W34.00XA Accidental discharge from unspecified firearms or gun, initial encounter; Z23 Encounter for immunization; F17.210 Nicotine dependence, cigarettes, uncomplicated
CPT/HCPCS: 36415; 71045; 80053; 83605; 85025; 85610; 85730; 86850; 86900; 86901; 90471; 96365; G0390

== ENCOUNTER 2022-03-03 20:47 | Inpatient (IN) | payer OTHER ==
[~2022-03-03 20:47] MED LIST: Iopamidol-370 76% 500 ML 1 ML ONE
[2022-03-03] MEDS ORDERED: Ondansetron PF 4 MG/2 ML Vial IVP PRN (22:29)
[2022-03-03] MEDS ORDERED: Morphine 2 MG/ML VIAL SLOW IVP PRN (22:29)
[2022-03-03] MEDS ORDERED: TETANUS, DIPHTHERIA TOX,ADULT (TDVAX) 0.5 ML VIAL IM ONE (22:29)
[2022-03-03] MEDS ORDERED: Sodium Chloride 0.9% 1,000 ML IV SCH (22:30)
[2022-03-03 22:31] LABS: #Lymphocytes 0.8 thou/uL (1.20-3.40); #Monocytes 0.8 thou/uL (0.11-0.59); #Neutrophils 4.9 thou/uL (1.40-6.50); %Basophils 0.4 % (0.0-1.0); %Eosinophils 0.5 % (0.0-10.0); %Lymphocytes 12.8 % (21.0-51.0); %Monocytes 11.8 % (0.0-10.0); %Neutrophils 74.5 % (42.0-75.0); Hemoglobin 10.2 g/dL (14.0-18.0); Mean Corpuscular HGB CONC 32.8 g/dL (32.0-36.0); Mean Corpuscular Hemoglobin 30.3 pg (27.0-31.0); Mean Corpuscular Volume 92.5 fl (78.0-98.0); Mean Platelet Volume 10.7 fL (7.4-10.4); Platelet Count 138 10x3/uL (130-400); RBC Distribution Width 12.3 % (11.5-14.5); Red Blood Cell (RBC) Count 3.35 mill/uL (4.70-6.10); White Blood Cell (WBC) Count 6.5 10x3/uL (4.8-10.8)
[2022-03-03] MEDS ORDERED: Ondansetron ODT 4 MG TAB PO PRN (22:32)
[2022-03-03] MEDS ORDERED: traMADol HCl 50 MG TAB PO PRN (22:32)
[2022-03-03] MEDS ORDERED: Cyclobenzaprine 10 MG TAB PO PRN (22:32)
[2022-03-03] MEDS ORDERED: Ketamine 50 MG/ML (10ML VIAL) ONE (22:33)
[2022-03-03] MEDS ORDERED: PROPOFOL 20 ML ONE (22:33)
[2022-03-03] MEDS ORDERED: Ondansetron PF 4 MG/2 ML Vial ONE (22:40)
[2022-03-03 22:41] LABS: PTT 31.2 sec (22.9-36.1)
[2022-03-03] MEDS ORDERED: Ketorolac Tromethamine 30 MG/ML VIAL IVP SCH (22:45)
[2022-03-03 22:48] LABS: ALT (SGPT) 23 U/L (8-55); AST (SGOT) 40 U/L (5-34); Albumin 3.2 g/dL (3.5-5.0); Alkaline Phosphatase 48 U/L (40-110); Anion Gap 11 mmol/L (10-20); BUN (Urea Nitrogen) 13 mg/dL (8.4-25.7); Bilirubin, Total 0.7 mg/dL (0.2-1.2); Calc. Creatinine Clearance 0 mL/min (70-130); Calcium 8.8 mg/dL (7.8-10.44); Carbon Dioxide 27 mmol/L (22-29); Chloride 102 mmol/L (98-107); Estimated GFR 98; Globulin 2.9 g/dL (2.4-3.5); Glucose 92 mg/dL (70-105); Lipase 7 U/L (8-78); Potassium 4.3 mmol/L (3.5-5.1); Protein, Total 6.1 g/dL (6.0-8.3); Sodium 136 mmol/L (136-145)
[2022-03-03] MEDS ORDERED: Lidocaine 2% PF 5 ML VIAL ONE (23:04)
[2022-03-03] MEDS ORDERED: Fentanyl 100 MCG/2 ML VIAL ONE (23:11)
[2022-03-03] MEDS ORDERED: Ketorolac Tromethamine 30 MG/ML VIAL ONE (23:31)
[2022-03-04] MEDS: Ketorolac Tromethamine 30 MG/ML VIAL IVP SCH ×5 (01:50→23:07)
[2022-03-04] MEDS: traMADol HCl 50 MG TAB PO SCH ×5 (02:05→23:07)
[2022-03-04] MEDS: Acetaminophen 500 MG TAB PO SCH ×4 (02:06→19:30)
[2022-03-04 02:59] VITALS: BMI 18.1
[2022-03-04 06:37] LABS: #Eosinphils 0.1 thou/uL (0.0-0.7); #Monocytes 0.8 thou/uL (0.11-0.59); #Neutrophils 3.9 thou/uL (1.40-6.50); %Basophils 0.3 % (0.0-1.0); %Eosinophils 1.9 % (0.0-10.0); %Lymphocytes 16.9 % (21.0-51.0); %Monocytes 12.9 % (0.0-10.0); Hemoglobin 9.3 g/dL (14.0-18.0); Mean Corpuscular HGB CONC 34.7 g/dL (32.0-36.0); Mean Corpuscular Hemoglobin 31.9 pg (27.0-31.0); Mean Corpuscular Volume 91.9 fl (78.0-98.0); Mean Platelet Volume 10.4 fL (7.4-10.4); Platelet Count 124 10x3/uL (130-400); RBC Distribution Width 12.2 % (11.5-14.5); Red Blood Cell (RBC) Count 2.91 mill/uL (4.70-6.10); White Blood Cell (WBC) Count 5.8 10x3/uL (4.8-10.8)
[2022-03-04 06:39] LABS: Amphetamine Not Detected (NotDetected); Barbiturates Screen Detected (NotDetected); Benzodiazepine Screen Not Detected (NotDetected); Cocaine Metabolite Screen Detected (NotDetected); Methadone Not Detected (NotDetected); Methamphetamine Detected (NotDetected); Opiate Screen Not Detected (NotDetected); Oxycodone Screen Not Detected (NotDetected); Phencyclidine (PCP) Detected (NotDetected); THC/Cannabinoid Screen Detected (NotDetected); Tricyclic Screen Not Detected (NotDetected)
[2022-03-04] MEDS ORDERED: traMADol HCl 50 MG TAB PO PRN (06:55)
[2022-03-04 07:12] LABS: SARS-CoV-2 NAA Rapid Test Not Detected (NotDetected)
[2022-03-04] MEDS: Gabapentin 300 MG CAP PO SCH ×3 (08:46→19:30)
[2022-03-04] MEDS: Famotidine 20 MG TAB PO SCH ×2 (08:46→19:29)
[2022-03-04] MEDS: Senokot S 8.6-50 MG TAB PO SCH ×2 (08:46→19:30)
[2022-03-04] MEDS: Polyethylene Glycol 3350 17 GM Packet PO SCH (08:46)
[2022-03-04] MEDS ORDERED: traMADol HCl 50 MG TAB PO SCH (12:00)
[2022-03-05] MEDS: Acetaminophen 500 MG TAB PO SCH ×4 (03:25→19:47)
[2022-03-05] MEDS: Ketorolac Tromethamine 30 MG/ML VIAL IVP SCH ×4 (05:36→23:22)
[2022-03-05] MEDS: traMADol HCl 50 MG TAB PO SCH ×4 (05:37→23:22)
[2022-03-05] MEDS: Gabapentin 300 MG CAP PO SCH ×3 (09:04→19:47)
[2022-03-05] MEDS: Senokot S 8.6-50 MG TAB PO SCH ×2 (09:04→19:47)
[2022-03-05] MEDS: Polyethylene Glycol 3350 17 GM Packet PO SCH (09:04)
[2022-03-05] MEDS: Famotidine 20 MG TAB PO SCH ×2 (09:05→19:47)
[2022-03-06] MEDS: Acetaminophen 500 MG TAB PO SCH ×4 (03:32→21:12)
[2022-03-06] MEDS: Ketorolac Tromethamine 30 MG/ML VIAL IVP SCH ×3 (05:32→17:58)
[2022-03-06] MEDS: traMADol HCl 50 MG TAB PO SCH ×3 (05:33→17:58)
[2022-03-06] MEDS: Senokot S 8.6-50 MG TAB PO SCH ×2 (09:14→21:12)
[2022-03-06] MEDS: Gabapentin 300 MG CAP PO SCH ×3 (09:14→21:12)
[2022-03-06] MEDS: Polyethylene Glycol 3350 17 GM Packet PO SCH (09:14)
[2022-03-06] MEDS: Famotidine 20 MG TAB PO SCH ×2 (09:14→21:12)
[2022-03-07] MEDS: Ketorolac Tromethamine 30 MG/ML VIAL IVP SCH ×3 (00:02→17:35)
[2022-03-07] MEDS: traMADol HCl 50 MG TAB PO SCH ×3 (00:02→14:15)
[2022-03-07] MEDS: Acetaminophen 500 MG TAB PO SCH ×2 (03:39→09:22)
[2022-03-07] MEDS ORDERED: FLU VACC QS2022-23(6MOS UP)/PF 60 MCG/0.5 ML SYRINGE IM ONE (09:00)
[2022-03-07] MEDS: Senokot S 8.6-50 MG TAB PO SCH (09:22)
[2022-03-07] MEDS: Famotidine 20 MG TAB PO SCH (09:22)
[2022-03-07] MEDS: Gabapentin 300 MG CAP PO SCH (09:23)
[2022-03-07] MEDS: Polyethylene Glycol 3350 17 GM Packet PO SCH (09:24)
[2022-03-07 13:19] VITALS: BP 120/72; TEMP 98.6
== END 2022-03-07 15:00 | disposition home or self-care (01) | DRG 200 ==
LOC: ERS 20:47 → SURG A 03-04 00:42
PROVIDERS: ADMIT Surgery; ATTEND Surgery
PROC: 0W9930Z Drainage of Right Pleural Cavity with Drainage Device, Percutaneous Approach (ICD-10-PCS; principal; 2022-03-04)
DX: S27.2XXA Traumatic hemopneumothorax, initial encounter (principal); S22.41XA Multiple fractures of ribs, right side, initial encounter for closed fracture; Z20.822 Contact with and (suspected) exposure to COVID-19; Z23 Encounter for immunization; G40.909 Epilepsy, unspecified, not intractable, without status epilepticus; F31.9 Bipolar disorder, unspecified; F41.9 Anxiety disorder, unspecified; F17.210 Nicotine dependence, cigarettes, uncomplicated; W01.0XXA Fall on same level from slipping, tripping and stumbling without subsequent striking against object, initial encounter; Y92.009 Unspecified place in unspecified non-institutional (private) residence as the place of occurrence of the external cause; Z79.899 Other long term (current) drug therapy
CPT/HCPCS: 32551; 36415; 70450; 71045; 71260; 72125; 74177; 80053; 80306; 83690; 85025; 85610; 85730; 90714; 96374; 96375; 99156; 99157; J1650; J1885; J2001; J2405; J2704; J3010; J7050; Q9967; U0002

== ENCOUNTER 2022-12-19 16:10 | Emergency (ER) | payer OTHER ==
[2022-12-19 19:13] LABS: Bacteria/HPF None Seen HPF (None Seen); Bilirubin Negative (Negative); Blood, Urine Negative (Negative); CAUTI Indications for Culture Acute Hematuria; Clarity Clear (Clear); Glucose, Urine (Dipstick) Normal (Negative); Ketone, Urine Negative (Negative); Leukocyte Negative Leu/uL (Negative); Nitrite Negative (Negative); Protein, Urine (Dipstick) 10 mg/dL (Neg-Trace); RBC/HPF 0-3 HPF (0-3); Specific Gravity, Urine 1.026 (1.002-1.036); Squamous Epithelial None Seen HPF (0-3); Urobilinogen 3 mg/dL (Less than 2); WBC/HPF 0-3 HPF (0-3); pH, Urine 6.5 (5.0-9.0)
[2022-12-19 19:15] LABS: Urine Culture Reflex No No
[2022-12-20 01:36] LABS: HIV (1/2) Antibody/Antigen Non-Reactive (NonReactive); HIV 1/2 INDEX 0.18 S/CO (<1.00)
[2022-12-20 12:03] LABS: Syphilis Antibody Nonreactive (Nonreactive); Syphilis Antibody Index 0.05 S/CO (<1.00 Non-Reactive)
[2022-12-20 12:58] LABS: Chlam.trachomatis by PCR,Urine Not Detected (NotDetected); GC N.gonorrhoeae PCR,UrineVOID Not Detected (NotDetected)
[2022-12-22 19:38] LABS: HIV-1 Quantitative, RNA PCR <20 copies/mL (.)
[2022-12-23 00:08] LABS: HSV 1 - DNA Negative (Negative); HSV 2 - DNA Negative (Negative)
== END 2022-12-19 21:31 | disposition home or self-care (01) ==
LOC: ERS 16:10
DX: L03.213 Periorbital cellulitis (principal); M54.31 Sciatica, right side; F17.210 Nicotine dependence, cigarettes, uncomplicated; Z20.2 Contact with and (suspected) exposure to infections with a predominantly sexual mode of transmission; Z79.899 Other long term (current) drug therapy
CPT/HCPCS: 36415; 81001; 86780; 87389; 87491; 87529; 87536; 87591; 99283